=== PATIENT | female | born 1960 | race Caucasian/White ===

== ENCOUNTER 2022-07-17 16:11 | Observation (INO) | payer SELFPAY ==
[2022-07-17 16:22] VITALS: BMI 28.9
[2022-07-17 18:27] LABS: BASO % 0.5 % (0-2.0); HEMATOCRIT 40.7 % (32.4-45.2); HEMOGLOBIN 13.4 GM/dL (10.7-15.3); LYMPH % 24.8 % (8-40); MCH 29.3 pg (25.7-33.7); MEAN CELL VOLUME 88.8 fl (80-96); MEAN PLT VOLUME 7.3 fl (7.5-11.1); MONO % 8.8 % (3.8-10.2); NEUT % 63.9 % (42.8-82.8); PLATELET COUNT 274 10^3/uL (134-434); RBC 4.58 M/mm3 (3.60-5.2); RDW 13.4 % (11.6-15.6); WHITE BLOOD COUNT 6.7 K/mm3 (4.0-10.0)
[2022-07-17 18:48] LABS: CHLORIDE 109 mmol/L (98-107); SODIUM 139 mmol/L (136-145)
[2022-07-17 18:52] LABS: ALBUMIN 3.8 g/dl (3.4-5.0); ANION GAP 7 MMOL/L (8-16); BLOOD UREA NITROGEN 14.8 mg/dL (7-18); CO2 23 mmol/L (21-32); GLUCOSE,RANDOM 81 mg/dL (74-106); LIPASE 71 U/L (73-393)
[2022-07-17 18:54] LABS: CREATININE 0.7 mg/dL (0.55-1.3); SGOT/AST 28 U/L (15-37); SGPT/ALT 37 U/L (13-61)
[2022-07-17 18:55] LABS: BILIRUBIN,TOTAL 0.4 mg/dL (0.2-1)
[2022-07-17 18:56] LABS: TOT PROT 7.8 g/dl (6.4-8.2)
[2022-07-17 18:57] LABS: ALK PHOS 126 U/L (45-117)
[2022-07-17] MEDS ORDERED: ACETAMINOPHEN 1000 MG/100 ML BAG IVPB ONE (19:43)
[2022-07-17] MEDS ORDERED: FAMOTIDINE 20 MG/50 ML IVPB 20 MG/50 ML MG IVPB ONE ×2 (19:43→19:56)
[2022-07-17] MEDS ORDERED: SODIUM CHLORIDE 0.9% 500 ML INFUS.BAG IV ONE (19:43)
[2022-07-17] MEDS ORDERED: ACETAMINOPHEN INJECTION 100 ML IVPB ONE (19:56)
[2022-07-17] MEDS ORDERED: PANTOPRAZOLE SODIUM 40 MG VIAL IVPUSH ONE (22:54)
[2022-07-17 22:56] LABS: URINE COLOR YELLOW
[2022-07-17 22:57] LABS: EPI CELLS 1.7 /uL (0-25.1); HYALINE CASTS 0.5 /uL (0-3.1); PH,URINE 5.5 (5.0-8.0); URINE APPEARANCE CLEAR; URINE BACTERIA 369.5 /uL (0-1359); URINE BILIRUBIN NEGATIVE (NEGATIVE); URINE GLUCOSE (UA) NEGATIVE (NEGATIVE); URINE KETONE NEGATIVE (NEGATIVE); URINE LEUK ESTERASE NEGATIVE (NEGATIVE); URINE NITRITE NEGATIVE (NEGATIVE); URINE PROTEIN NEGATIVE (NEGATIVE); URINE RBC 13.3 /uL (0-23.9); URINE UROBILINOGEN 0.2 mg/dL (0.2-1.0); URINE WBC 104.5 /uL (0-25.8)
[2022-07-17] MEDS ORDERED: PANTOPRAZOLE SODIUM 40 MG/100 ML BAG IVPB ONE (23:06)
[2022-07-18] MEDS ORDERED: SODIUM CHLORIDE 1,000 ML IV SCH (00:30)
[2022-07-18] MEDS ORDERED: CEFTRIAXONE 1 GM in DEXTROSE 5%-WATER - 50 ML IVPB ONE (00:44)
[2022-07-18] MEDS ORDERED: CEFTRIAXONE 1 GM/50 ML BAG ONE (01:09)
[2022-07-18] MEDS ORDERED: ACETAMINOPHEN 1000 MG/100 ML BAG IVPB PRN ×2 (01:50→02:20)
[2022-07-18] MEDS ORDERED: ACETAMINOPHEN INJECTION 100 ML IVPB ONE (02:09)
[2022-07-18 06:59] VITALS: RESP 18; TEMP 98.1
[2022-07-18] MEDS ORDERED: ENOXAPARIN NA (PORCINE) 40 MG/0.4 ML DISP.SYRIN SQ ONE (09:03)
[2022-07-18] MEDS ORDERED: PANTOPRAZOLE 20 MG TABLET PO ONE (09:03)
[2022-07-18] MEDS ORDERED: ENOXAPARIN NA (PORCINE) 40 MG/0.4 ML DISP.SYRIN SQ SCH (10:00)
[2022-07-18] MEDS ORDERED: PANTOPRAZOLE 20 MG TABLET PO SCH (10:00)
[2022-07-18 12:04] VITALS: BP 125/73; PULSE 70
== END 2022-07-18 12:04 | disposition home or self-care (01) ==
LOC: JER 16:11 → JERBED 22:44
PROVIDERS: ADMIT Internal Medicine
PROC: 3E033NZ Introduction of Analgesics, Hypnotics, Sedatives into Peripheral Vein, Percutaneous Approach (ICD-10-PCS; principal; 2022-07-17)
PROC: 3E03329 Introduction of Other Anti-infective into Peripheral Vein, Percutaneous Approach (ICD-10-PCS; 2022-07-17)
PROC: 3E023GC Introduction of Other Therapeutic Substance into Muscle, Percutaneous Approach (ICD-10-PCS; 2022-07-17)
PROC: 3E033GC Introduction of Other Therapeutic Substance into Peripheral Vein, Percutaneous Approach (ICD-10-PCS; 2022-07-17)
PROC: 3E0337Z Introduction of Electrolytic and Water Balance Substance into Peripheral Vein, Percutaneous Approach (ICD-10-PCS; 2022-07-17)
DX: N39.0 Urinary tract infection, site not specified (principal); R10.13 Epigastric pain; M06.9 Rheumatoid arthritis, unspecified; R10.84 Generalized abdominal pain; R19.7 Diarrhea, unspecified
CPT/HCPCS: 36415; 74177-TC; 80053; 81003; 83605; 83690; 84484; 85025; 86140; 87077; 87086; 93005; 93010; 99285-25; C9803-CS; G0378; Q9967; U0003; U0005

== ENCOUNTER 2023-04-10 17:46 | Inpatient (IN) | payer OTHER ==
[2023-04-10] MEDS ORDERED: SODIUM CHLORIDE 0.9% 500 ML INFUS.BAG IV ONE (19:31)
[2023-04-10] MEDS ORDERED: ACETAMINOPHEN 1000 MG/100 ML BAG IVPB ONE (19:31)
[2023-04-10] MEDS ORDERED: METOCLOPRAMIDE HCL INJECTION 10 MG/2 ML VIAL IVPB ONE (19:31)
[2023-04-10] MEDS ORDERED: ACETAMINOPHEN INJECTION 100 ML IVPB ONE (20:42)
[2023-04-10] MEDS ORDERED: METOCLOPRAMIDE HCL INJECTION 10 MG/2 ML VIAL ONE (20:42)
[2023-04-10 21:07] LABS: BASO % 0.6 % (0-2.0); HEMATOCRIT 38.5 % (32.4-45.2); HEMOGLOBIN 13.2 GM/dL (10.7-15.3); LYMPH % 30.7 % (8-40); MCH 30.6 pg (25.7-33.7); MCHC 34.4 g/dl (32.0-36.0); MEAN PLT VOLUME 7.4 fl (7.5-11.1); MONO % 8.3 % (3.8-10.2); NEUT % 59.4 % (42.8-82.8); PLATELET COUNT 263 10^3/uL (134-434); RBC 4.32 M/mm3 (3.60-5.2); WHITE BLOOD COUNT 5.9 K/mm3 (4.0-10.0)
[2023-04-10 21:22] LABS: INR 0.97 (0.83-1.09); PROTHROMBIN TIME (PATIENT) 11.3 SEC (9.7-13.0)
[2023-04-10 21:24] LABS: ACTIVATED PTT 34.4 SECONDS (25.2-36.5)
[2023-04-10 21:30] LABS: POTASSIUM 3.6 mmol/L (3.5-5.1)
[2023-04-10 21:32] LABS: CALCIUM 8.7 mg/dL (8.5-10.1)
[2023-04-10 21:33] LABS: ALBUMIN 3.6 g/dl (3.4-5.0)
[2023-04-10 21:35] LABS: CREATININE 0.6 mg/dL (0.55-1.3)
[2023-04-10 21:37] LABS: BILIRUBIN,TOTAL 0.2 mg/dL (0.2-1); TOT PROT 7.3 g/dl (6.4-8.2)
[2023-04-11] MEDS ORDERED: ONDANSETRON 4 MG/2 ML VIAL IVPUSH PRN (05:54)
[2023-04-11 08:44] LABS: HEMATOCRIT 40.7 % (32.4-45.2); HEMOGLOBIN 13.4 GM/dL (10.7-15.3); MEAN CELL VOLUME 91.1 fl (80-96); MEAN PLT VOLUME 7.7 fl (7.5-11.1); PLATELET COUNT 269 10^3/uL (134-434); RBC 4.47 M/mm3 (3.60-5.2); RDW 12.8 % (11.6-15.6); WHITE BLOOD COUNT 5.1 K/mm3 (4.0-10.0)
[2023-04-11 09:04] LABS: POTASSIUM 3.8 mmol/L (3.5-5.1)
[2023-04-11 09:22] LABS: CALCIUM 8.5 mg/dL (8.5-10.1)
[2023-04-11 09:23] LABS: ALBUMIN 3.5 g/dl (3.4-5.0); MAGNESIUM 2.3 mg/dL (1.8-2.4)
[2023-04-11 09:24] LABS: BLOOD UREA NITROGEN 10.5 mg/dL (7-18)
[2023-04-11 09:25] LABS: CREATININE 0.6 mg/dL (0.55-1.3); PHOSPHOROUS 3.5 mg/dL (2.5-4.9)
[2023-04-11 09:26] LABS: TOT PROT 7.4 g/dl (6.4-8.2)
[2023-04-11 09:27] LABS: BILIRUBIN,TOTAL 0.4 mg/dL (0.2-1)
[2023-04-11] MEDS: ENOXAPARIN NA (PORCINE) 40 MG/0.4 ML DISP.SYRIN SQ SCH (10:06)
[2023-04-11 15:06] VITALS: BMI 30.2
[2023-04-11 18:58] LABS: URINE APPEARANCE CLEAR; URINE BILIRUBIN NEGATIVE (NEGATIVE); URINE COLOR YELLOW; URINE GLUCOSE (UA) NEGATIVE (NEGATIVE); URINE KETONE NEGATIVE (NEGATIVE); URINE LEUK ESTERASE NEGATIVE (NEGATIVE); URINE NITRITE NEGATIVE (NEGATIVE); URINE PROTEIN NEGATIVE (NEGATIVE); URINE UROBILINOGEN 0.2 mg/dL (0.2-1.0)
[2023-04-11] MEDS ORDERED: RIMEGEPANT SULFATE 75 MG TAB.RAPDIS SL ONE (20:44)
[2023-04-11] MEDS: TOPIRAMATE 25 MG TABLET PO SCH (21:27)
[2023-04-12] MEDS ORDERED: LORazepam 2 MG/ML SDV VIAL IVPUSH PRN (08:19)
[2023-04-12] MEDS: ENOXAPARIN NA (PORCINE) 40 MG/0.4 ML DISP.SYRIN SQ SCH (10:23)
[2023-04-12] MEDS: TOPIRAMATE 25 MG TABLET PO SCH (10:23)
[2023-04-12 11:34] VITALS: BP 126/71; PULSE 65; RESP 18; TEMP 98.1
== END 2023-04-12 13:30 | disposition home or self-care (01) | DRG 54 ==
LOC: JER 17:46 → JERBED 22:13 → J7W 04-11 02:31 → OBSVTOIN 04-11 05:55 → J7W 04-11 23:51
PROVIDERS: ADMIT Internal Medicine
DX: G43.109 Migraine with aura, not intractable, without status migrainosus (principal); M06.9 Rheumatoid arthritis, unspecified; R20.2 Paresthesia of skin; E78.5 Hyperlipidemia, unspecified; Z86.16 Personal history of COVID-19; G25.81 Restless legs syndrome
CPT/HCPCS: 0241U-QW; 36415; 70450-TC; 70553-TC; 80053; 80061; 81003; 83735; 84100; 84443; 85025; 85027; 85610; 85730; 86850; 86900; 86901; 93880-TC; 99285-25; G0378

== ENCOUNTER 2023-07-23 18:08 | Emergency (ER) | payer OTHER ==
[2023-07-23 18:26] VITALS: RESP 16; BMI 29.2
[2023-07-23] MEDS ORDERED: ONDANSETRON 4 MG/2 ML VIAL ONE (19:51)
[2023-07-23] MEDS ORDERED: ACETAMINOPHEN INJECTION 100 ML IVPB ONE (19:51)
[2023-07-23] MEDS ORDERED: FAMOTIDINE 20 MG/50 ML IVPB 20 MG/50 ML MG IVPB ONE (19:52)
[2023-07-23 20:02] LABS: BASO % 0.8 % (0-2.0); EOS % 1.2 % (0-4.5); HEMATOCRIT 37.1 % (32.4-45.2); HEMOGLOBIN 12.2 GM/dL (10.7-15.3); LYMPH % 32.2 % (8-40); MEAN CELL VOLUME 91.1 fl (80-96); MONO % 9.1 % (3.8-10.2); NEUT % 56.7 % (42.8-82.8); PLATELET COUNT 219 10^3/uL (134-434); RBC 4.07 M/mm3 (3.60-5.2); RDW 13.9 % (11.6-15.6); WHITE BLOOD COUNT 5.3 K/mm3 (4.0-10.0)
[2023-07-23] MEDS: ACETAMINOPHEN 1000 MG/100 ML BAG IVPB ONE (20:02)
[2023-07-23] MEDS: ONDANSETRON 4 MG/2 ML VIAL IVPUSH ONE (20:03)
[2023-07-23] MEDS: FAMOTIDINE 20 MG/50 ML IVPB 20 MG/50 ML MG IVPB ONE (20:03)
[2023-07-23] MEDS: LACTATED RINGERS SOLUTION 1000 ML INFUS.BAG IV ONE (20:03)
[2023-07-23 20:12] LABS: INR 1.01 (0.83-1.09); PROTHROMBIN TIME (PATIENT) 11.7 SEC (9.7-13.0)
[2023-07-23 20:13] LABS: ACTIVATED PTT 34.2 SECONDS (25.2-36.5)
[2023-07-23 21:31] LABS: POTASSIUM 3.6 mmol/L (3.5-5.1)
[2023-07-23 21:33] LABS: CALCIUM 8.2 mg/dL (8.5-10.1)
[2023-07-23 21:34] LABS: ALBUMIN 3.1 g/dl (3.4-5.0); BLOOD UREA NITROGEN 11.3 mg/dL (7-18)
[2023-07-23 21:37] LABS: CREATININE 0.4 mg/dL (0.55-1.3)
[2023-07-23 21:39] LABS: BILIRUBIN,TOTAL 0.3 mg/dL (0.2-1)
[2023-07-23 21:44] LABS: TOT PROT 6.3 g/dl (6.4-8.2)
[2023-07-23 23:36] LABS: PH,URINE 6.5 (5.0-8.0); URINE APPEARANCE CLEAR; URINE BILIRUBIN NEGATIVE (NEGATIVE); URINE COLOR YELLOW; URINE GLUCOSE (UA) NEGATIVE (NEGATIVE); URINE KETONE NEGATIVE (NEGATIVE); URINE LEUK ESTERASE NEGATIVE (NEGATIVE); URINE NITRITE NEGATIVE (NEGATIVE); URINE PROTEIN NEGATIVE (NEGATIVE); URINE UROBILINOGEN 0.2 mg/dL (0.2-1.0)
[2023-07-24 02:28] VITALS: BP 116/69; PULSE 51; TEMP 97.6
== END 2023-07-24 03:07 | disposition home or self-care (01) ==
LOC: JER 18:08
PROC: 3E033GC Introduction of Other Therapeutic Substance into Peripheral Vein, Percutaneous Approach (ICD-10-PCS; principal; 2023-07-23)
PROC: 3E030NZ Introduction of Analgesics, Hypnotics, Sedatives into Peripheral Vein, Open Approach (ICD-10-PCS; 2023-07-23)
PROC: 3E030GC Introduction of Other Therapeutic Substance into Peripheral Vein, Open Approach (ICD-10-PCS; 2023-07-23)
DX: R10.11 Right upper quadrant pain (principal); R10.816 Epigastric abdominal tenderness; R10.30 Lower abdominal pain, unspecified; R60.0 Localized edema; R11.0 Nausea; Z20.822 Contact with and (suspected) exposure to COVID-19
CPT/HCPCS: 0241U-QW; 36415; 71045-TC-FY; 74177-TC; 80053; 81003; 84484; 85025; 85379; 85610; 85730; 87077; 87086; 93005; 93010; 96365; 96375; 99285-25; J0131